=== PATIENT | male | born 1980 | race Caucasian/White ===

== ENCOUNTER 2019-03-09 23:34 | Emergency (ER) | payer BC ==
[~2019-03-09] VITALS: Ht 175.3 cm; Wt 76.7 kg
[~2019-03-09 23:34] MED LIST: MELO7.5T29 PO; TRAM50TA PO
[2019-03-09] MEDS ORDERED: ASPIRIN CHEWABLE 81 MG TABLET. PO ONE (23:45)
--- NOTE | 2019-03-09 23:46 | PHYS DOC ---
Past Medical History Past Medical History: No Pertinent History Past Surgical History: Other Additional Past Surgical Histo: vasectomy Alcohol Use: None Drug Use: None, Other Adult General Chief Complaint Chief Complaint: CHEST PAIN HPI HPI 38-year-old male with no past medical history, no family history that he is aware of presents to the emergency department with substernal chest pain been ongoing all day. Describes the pain as sharp, constant. He states he just of antacids with no relief. Denies any nausea or vomiting. He does describe some shortness of breath. No radiation of the pain. Nothing makes it worse, nothing makes it better. Patient denies any cough Review of Systems Review of Systems Constitutional: Denies fever or chills [] Eyes: Denies change in visual acuity, redness, or eye pain [] HENT: Denies nasal congestion or sore throat [] Respiratory: + SOB Cardiovascular: No additional information not addressed in HPI [] GI: Denies abdominal pain, nausea, vomiting, bloody stools or diarrhea [] Musculoskeletal: Denies back pain or joint pain [] Integument: Denies rash or skin lesions [] Neurologic: Denies headache, focal weakness or sensory changes [] All other systems were reviewed and found to be within normal limits, except as documented in this note. Current Medications Current Medications Current Medications Medications (Trade) Dose Ordered Sig/[facility] Start Time Stop Time Status Last Admin Dose Admin Aspirin (Children'S Aspirin) 324 mg 1X ONCE 03/09/19 23:45 03/09/19 23:46 DC 03/09/19 23:57 324 MG Ketorolac Tromethamine (Toradol 30mg Vial) 30 mg 1X ONCE 03/10/19 00:30 03/10/19 00:31 DC 03/10/19 00:39 30 MG Magnesium Sulfate 50 ml @ 25 mls/hr 1X ONCE 03/10/19 00:30 03/10/19 02:29 03/10/19 00:39 25 MLS/HR Nitroglycerin (Nitrostat) 0.4 mg PRN Q5MIN PRN 03/09/19 23:45 03/10/19 23:44 03/10/19 00:13 0.4 MG Allergies Allergies Allergies Coded Allergies Type Severity Reaction Last Updated Verified No Known Drug Allergies 04/28/13 No Physical Exam Physical Exam Constitutional: Well developed, well nourished, no acute distress, non-toxic appearance. [] HENT: Normocephalic, atraumatic, bilateral external ears normal, oropharynx moist, no oral exudates, nose normal. [] Eyes: PERRLA, EOMI, conjunctiva normal, no discharge. [] Cardiovascular:Heart rate regular rhythm, no murmur [] Lungs & Thorax: Bilateral breath sounds clear to auscultation [] Abdomen: Bowel sounds normal, soft, no tenderness, no masses, no pulsatile masses. [] Skin: Warm, dry, no erythema, no rash. [] Back: No tenderness, no CVA tenderness. [] Extremities: No tenderness, no edema. [] Neurologic: Alert and oriented X 3, no focal deficits noted. [] Psychologic: Affect normal, judgement normal, mood normal. [] Current Patient Data Vital Signs Vital Signs Date Time Temp Pulse Resp B/P (MAP) Pulse Ox O2 Delivery O2 Flow Rate FiO2 03/10/19 01:50 74 20 108/66 (80) 98 Room Air 03/09/19 23:35 97.4 97.4 Lab Values Laboratory Tests Test 03/09/19 23:44 White Blood Count 8.0 x10^3/uL (4.0-11.0) Red Blood Count 4.57 x10^6/uL (4.30-5.70) Hemoglobin 14.6 g/dL (13.0-17.5) Hematocrit 42.7 % (39.0-53.0) Mean Corpuscular Volume 93 fL (79-100) Mean Corpuscular Hemoglobin 32 pg (25-35) Mean Corpuscular Hemoglobin Concent 34 g/dL (31-37) Red Cell Distribution Width 13.0 % (11.5-14.5) Platelet Count 215 x10^3/uL (140-400) Neutrophils (%) (Auto) 57 % (31-73) Lymphocytes (%) (Auto) 32 % (24-48) Monocytes (%) (Auto) 8 % (0-9) Eosinophils (%) (Auto) 2 % (0-3) Basophils (%) (Auto) 1 % (0-3) Neutrophils # (Auto) 4.6 x10^3/uL (1.8-7.7) Lymphocytes # (Auto) 2.5 x10^3/uL (1.0-4.8) Monocytes # (Auto) 0.7 x10^3/uL (0.0-1.1) Eosinophils # (Auto) 0.2 x10^3/uL (0.0-0.7) Basophils # (Auto) 0.1 x10^3/uL (0.0-0.2) Sodium Level 142 mmol/L (136-145) Potassium Level 4.3 mmol/L (3.5-5.1) Chloride Level 103 mmol/L (98-107) Carbon Dioxide Level 29 mmol/L (21-32) Anion Gap 10 (6-14) Blood Urea Nitrogen 11 mg/dL (8-26) Creatinine 0.9 mg/dL (0.7-1.3) Estimated GFR (Cockcroft-Gault) 93.5 BUN/Creatinine Ratio 12 (6-20) Glucose Level 161 mg/dL (70-99) H Calcium Level 9.5 mg/dL (8.5-10.1) Magnesium Level 1.6 mg/dL (1.8-2.4) L Total Bilirubin 0.2 mg/dL (0.2-1.0) Aspartate Amino Transferase (AST) 61 U/L (15-37) H Alanine Aminotransferase (ALT) 105 U/L (16-63) H Alkaline Phosphatase 162 U/L (46-116) H Troponin I Quantitative < 0.017 ng/mL (0.000-0.055) MF-Bjh-V-Type Natriuretic Peptide 42 pg/mL (0-124) Total Protein 7.2 g/dL (6.4-8.2) Albumin 3.8 g/dL (3.4-5.0) Albumin/Globulin Ratio 1.1 (1.0-1.7) Laboratory Tests 03/09/19 23:44 Laboratory Tests 03/09/19 23:44 EKG EKG EKG reviewed normal sinus rhythm, normal axis, no evidence of ST elevation NM, heart rate 68 normal EKG interpretation time 28/06/39[] Radiology/Procedures Radiology/Procedures [facility] [address] [place] [address] IMAGING REPORT Signed PATIENT: CORY TURNERCAMERONCCOUNT: [id number] : 1980 LOCATION: ER AGE: 38 SEX: M EXAM STATUS: REG ER ORD. PHYSICIAN: TARIQ GLYNN MD REASON: elevated lfts, epigastric pain PROCEDURE: ABDOMEN LTD CLINICAL HISTORY: Elevated LFTs, epigastric pain COMPARISON: None available. TECHNIQUE: Limited ultrasound examination of the right upper quadrant of the abdomen was performed FINDINGS: Visualized pancreatic head and body are unremarkable. Tail is obscured by overlying bowel gas. Liver: The liver measures 16 cm in length in the right mid clavicular line. Increased hepatic echogenicity relative to the right kidney consistent with hepatic steatosis. There is no focal abnormality of the liver. Portal and hepatic venous flow is confirmed with normal waveforms. Gallbladder/Biliary: Gallstones are seen within the gallbladder. Echogenic material dependently within the gallbladder likely sludge.. There is no wall thickening or pericholecystic fluid. There is no pain with direct transducer pressure over the gallbladder.The common bile duct measures 0.4 cm. The right kidney measures 9.8 cm in bipolar length. No focal renal lesion. Normal renal cortical echotexture. No hydronephrosis. There is no free fluid in the subhepatic space. IMPRESSION: Mild increased echogenicity of the liver may be seen with fatty liver. Lithiasis without sonographic evidence for acute cholecystitis. Electronically signed by: Jeremias Crowley MD (03/10/2019 1:52 AM) [facility] DICTATED and SIGNED BY: JEREMIAS CROWLEY MD DATE: 03/10/19 0152 [] Course & Med Decision Making Course & Med Decision Making Pertinent Labs and Imaging studies reviewed. (See chart for details) []38-year-old male with no past medical history, no family history that he is aware of presents to the emergency department with substernal chest pain been ongoing all day. Describes the pain as sharp, constant. He states he just of antacids with no relief. Denies any nausea or vomiting. He does describe some shortness of breath. No radiation of the pain. Nothing makes it worse, nothing makes it better. Patient denies any cough Trop negative LFTs elevated US reviewed - no acute cholecystitis Planned for dc home - pain improved after Toradol Return precautions provided Recommend dc home follow up with PCP as needed Dragon Disclaimer Dragon Disclaimer This electronic medical record was generated, in whole or in part, using a voice recognition dictation system. The HEART Score for CP Pts HEART Score for Chest Pain: HEART Score for Chest Pain Response (Comments) Value History Slighlty/Non-Suspicious 0 ECG Normal 0 Age < 45 0 Risk Factors 1 or 2 Risk Factors 1 Troponin < Normal Limit 0 Total 1 Risk Factors: Risk Factors: DM, Current or recent (<one month) smoker, HTN, HLP, family history of CAD, obesity. Risk Scores: Score 0 - 3: 2.5% MACE over next 6 weeks - Discharge Home Score 4 - 6: 20.3% MACE over next 6 weeks - Admit for Clinical Observation Score 7 - 10: 72.7% MACE over next 6 weeks - Early Invasive Strategies Departure Departure Impression: Primary Impression: Epigastric abdominal pain Disposition: 01 HOME, SELF-CARE Condition: IMPROVED Referrals: NO PCP (PCP) Patient Instructions: Abdominal Pain, Chest Pain (Nonspecific), [id number] Additional Instructions: Recommend follow up with PCP 3 - 5 days Return to the ER with worsening symptoms, intractable pain, fever, altered mental status Tylenol/Motrin as needed for pain US reviewed without acute cholecystitis TARIQ GLYNN MD Mar 09, 2019 23:46
[2019-03-09 23:52] LABS: BASO # 0.1 x10^3/uL (0.0-0.2); BASO % 1 % (0-3); EOS # 0.2 x10^3/uL (0.0-0.7); EOS % 2 % (0-3); HEMATOCRIT 42.7 % (39.0-53.0); HEMOGLOBIN 14.6 g/dL (13.0-17.5); LYMPH # 2.5 x10^3/uL (1.0-4.8); LYMPH % 32 % (24-48); MEAN CORPUSCULAR HEMOGLOBIN 32 pg (25-35); MEAN CORPUSCULAR HGB CONC 34 g/dL (31-37); MEAN CORPUSCULAR VOLUME 93 fL (79-100); MONO # 0.7 x10^3/uL (0.0-1.1); MONO % 8 % (0-9); NEUT # 4.6 x10^3/uL (1.8-7.7); NEUT % 57 % (31-73); PLATELET COUNT 215 x10^3/uL (140-400); RED BLOOD COUNT 4.57 x10^6/uL (4.30-5.70)
[2019-03-09] MEDS: NITROGLYCERIN SUBLINGUAL 0.4 MG BOTTLE OF 25. SL PRN (23:58)
[2019-03-10 00:05] LABS: CALCIUM 9.5 mg/dL (8.5-10.1); CREATININE 0.9 mg/dL (0.7-1.3); GFR 93.5; POTASSIUM 4.3 mmol/L (3.5-5.1)
--- NOTE | 2019-03-10 00:07 | RAD ---
EXAM: AP View of the chest DATE: 03/09/2019 11:35 PM INDICATION: Chest pain COMPARISON: 03/26/2018 FINDINGS: The heart is not enlarged. Mediastinal and hilar contours are normal. No focal parenchymal airspace opacity. No pleural effusion or pneumothorax. IMPRESSION: 1. No radiographic evidence for acute cardiopulmonary process. Electronically signed by: Jeremias Crowley MD (03/10/2019 12:04 AM) [facility]
[2019-03-10 00:11] LABS: ALBUMIN 3.8 g/dL (3.4-5.0); ALBUMIN/GLOBULIN RATIO 1.1 (1.0-1.7); MAGNESIUM 1.6 mg/dL (1.8-2.4); TOTAL BILIRUBIN 0.2 mg/dL (0.2-1.0); TOTAL PROTEIN 7.2 g/dL (6.4-8.2)
[2019-03-10] MEDS: NITROGLYCERIN SUBLINGUAL 0.4 MG BOTTLE OF 25. SL PRN (00:13)
[2019-03-10] MEDS ORDERED: MAGNESIUM SULFATE 2GM 50 ML IV ONE (00:30)
[2019-03-10] MEDS ORDERED: KETOROLAC 30 MG/ML VIAL. IVP ONE (00:30)
--- NOTE | 2019-03-10 01:55 | RAD ---
CLINICAL HISTORY: Elevated LFTs, epigastric pain COMPARISON: None available. TECHNIQUE: Limited ultrasound examination of the right upper quadrant of the abdomen was performed FINDINGS: Visualized pancreatic head and body are unremarkable. Tail is obscured by overlying bowel gas. Liver: The liver measures 16 cm in length in the right mid clavicular line. Increased hepatic echogenicity relative to the right kidney consistent with hepatic steatosis. There is no focal abnormality of the liver. Portal and hepatic venous flow is confirmed with normal waveforms. Gallbladder/Biliary: Gallstones are seen within the gallbladder. Echogenic material dependently within the gallbladder likely sludge.. There is no wall thickening or pericholecystic fluid. There is no pain with direct transducer pressure over the gallbladder.The common bile duct measures 0.4 cm. The right kidney measures 9.8 cm in bipolar length. No focal renal lesion. Normal renal cortical echotexture. No hydronephrosis. There is no free fluid in the subhepatic space. IMPRESSION: Mild increased echogenicity of the liver may be seen with fatty liver. Lithiasis without sonographic evidence for acute cholecystitis. Electronically signed by: Jeremias Crowley MD (03/10/2019 1:52 AM) [facility]
[2019-03-10 02:17] VITALS: BP 121/62
--- NOTE | 2019-03-11 07:03 | EKG ---
[facility] [address] [place] [address] Test Date: 2019-03-09 Test Time: 23:40:21 Pat Name: DEON TURNER Department: Room: Gender: M Inspector Tubes: : 1980 Requested By: TARIQ GLYNN Order Number: [id number] Reading MD: Tejas Gaspar MD Measurements Intervals Roxana Rate: 68 P: 20 MA: 134 QRS: 50 QRSD: 84 T: 31 QT: 396 QTc: 425 Interpretive Statements SINUS RHYTHM Electronically Signed On 03-12-2019 11:09:40 [employer] by Tejas Gaspar MD
== END 2019-03-10 02:20 | disposition home or self-care (01) ==
LOC: ER 23:34
DX: R10.13 Epigastric pain (principal); Z90.89 Acquired absence of other organs; Z79.82 Long term (current) use of aspirin
CPT/HCPCS: 36415; 71045; 76705; 80053; 83735; 83880; 84484; 85025; 93005; 96365; 96366; 96375; 99285; J1885; J3475

== ENCOUNTER 2019-11-19 05:52 | Emergency (ER) | payer BC ==
[~2019-11-19] VITALS: Ht 172.7 cm; Wt 73.4 kg
[2019-11-19] MEDS ORDERED: ONDANSETRON PF 4 MG/2 ML VIAL. IVP ONE (06:15)
[2019-11-19] MEDS ORDERED: IV NORMAL SALINE 1000ML BAG 1,000 ML IV ONE (06:15)
[2019-11-19 06:24] LABS: BASO # 0.1 x10^3/uL (0.0-0.2); BASO % 1 % (0-3); EOS # 0.1 x10^3/uL (0.0-0.7); EOS % 2 % (0-3); HEMOGLOBIN 14.5 g/dL (13.0-17.5); LYMPH # 3.1 x10^3/uL (1.0-4.8); LYMPH % 34 % (24-48); MEAN CORPUSCULAR HEMOGLOBIN 32 pg (25-35); MEAN CORPUSCULAR HGB CONC 35 g/dL (31-37); MEAN CORPUSCULAR VOLUME 92 fL (79-100); MONO # 0.7 x10^3/uL (0.0-1.1); MONO % 7 % (0-9); NEUT % 56 % (31-73); PLATELET COUNT 196 x10^3/uL (140-400); RED BLOOD COUNT 4.54 x10^6/uL (4.30-5.70); RED CELL DISTRIBUTION WIDTH 12.8 % (11.5-14.5)
--- NOTE | 2019-11-19 06:28 | PHYS DOC ---
Past Medical History Past Medical History: GERD Past Surgical History: No Surgical History, Other Additional Past Surgical Histo: vasectomy Smoking Status: Current Every Day Smoker Alcohol Use: None Drug Use: None General Adult EDM: Chief Complaint: ABDOMINAL PAIN HPI: HPI: Patient is a 39 year old male who presented to ER today for evaluation of epigastric abdominal pain that radiated to his right upper quadrant and his back since 5 AM yesterday. Patient denies any nausea vomiting, no cough, no fever, no chest pain. Patient has history of chronic back pain, so he has been taking ibuprofen every morning. Patient had not taken any ibuprofen for the last 2 days because he ran out. Patient denies drinking alcohol. Patient denies any history of heart problem, no history of hypertension, no history of diabetic. Patient denies any recent exposure to anybody who tested positive for COVID-19. Patient said eating makes the pain worse. Review of Systems: Review of Systems: Constitutional: Denies fever or chills. [] Eyes: Denies change in visual acuity. [] HENT: Denies nasal congestion or sore throat. [] Respiratory: Denies cough or shortness of breath. [] Cardiovascular: Denies chest pain or edema. [] GI: Positive for abdominal pain, no nausea vomiting, no diarrhea : Denies dysuria. [] Musculoskeletal: Denies back pain or joint pain. [] Integument: Denies rash. [] Neurologic: Denies headache, focal weakness or sensory changes. [] Endocrine: Denies polyuria or polydipsia. [] Lymphatic: Denies swollen glands. [] Psychiatric: Denies depression or anxiety. [] Heart Score: Risk Factors: Risk Factors: DM, Current or recent (<one month) smoker, HTN, HLP, family history of CAD, obesity. Risk Scores: Score 0 - 3: 2.5% MACE over next 6 weeks - Discharge Home Score 4 - 6: 20.3% MACE over next 6 weeks - Admit for Clinical Observation Score 7 - 10: 72.7% MACE over next 6 weeks - Early Invasive Strategies Current Medications: Current Medications Medications (Trade) Dose Ordered Sig/Hailee Start Time Stop Time Status Last Admin Dose Admin Ondansetron HCl (Zofran) 4 mg 1X ONCE 11/19/19 06:15 11/19/19 06:16 DC Sodium Chloride 1,000 ml @ 1,000 mls/hr 1X ONCE 11/19/19 06:15 11/19/19 07:14 Allergies: Allergies: Allergies Coded Allergies Type Severity Reaction Last Updated Verified No Known Drug Allergies 04/28/13 No Physical Exam: PE: Constitutional: Well developed, well nourished, no acute distress, non-toxic appearance. [] HENT: Normocephalic, atraumatic, bilateral external ears normal, oropharynx moist, no oral exudates, nose normal. [] Eyes: PERRLA, EOMI, conjunctiva normal, no discharge. [] Neck: Normal range of motion, no tenderness, supple, no stridor. [] Cardiovascular:Heart rate regular rhythm, no murmur [] Lungs & Thorax: Bilateral breath sounds clear to auscultation [] Abdomen: Bowel sounds normal, soft, There is tenderness to palpation in epigastric area and RUQ AREA, no rebound, no guarding,, no masses, no pulsatile masses. [] Skin: Warm, dry, no erythema, no rash. [] Back: No tenderness, no CVA tenderness. [] Extremities: No tenderness, no cyanosis, no clubbing, ROM intact, no edema. [] Neurologic: Alert and oriented X 3, normal motor function, normal sensory function, no focal deficits noted. [] Psychologic: Affect normal, judgement normal, mood normal. [] Current Patient Data: Labs: Laboratory Tests Test 11/19/19 06:16 11/19/19 07:41 White Blood Count 9.0 x10^3/uL Red Blood Count 4.54 x10^6/uL Hemoglobin 14.5 g/dL Hematocrit 42.0 % Mean Corpuscular Volume 92 fL Mean Corpuscular Hemoglobin 32 pg Mean Corpuscular Hemoglobin Concent 35 g/dL Red Cell Distribution Width 12.8 % Platelet Count 196 x10^3/uL Neutrophils (%) (Auto) 56 % Lymphocytes (%) (Auto) 34 % Monocytes (%) (Auto) 7 % Eosinophils (%) (Auto) 2 % Basophils (%) (Auto) 1 % Neutrophils # (Auto) 5.0 x10^3/uL Lymphocytes # (Auto) 3.1 x10^3/uL Monocytes # (Auto) 0.7 x10^3/uL Eosinophils # (Auto) 0.1 x10^3/uL Basophils # (Auto) 0.1 x10^3/uL Sodium Level 143 mmol/L Potassium Level 4.0 mmol/L Chloride Level 106 mmol/L Carbon Dioxide Level 29 mmol/L Anion Gap 8 Blood Urea Nitrogen 12 mg/dL Creatinine 0.8 mg/dL Estimated GFR (Cockcroft-Gault) 106.5 BUN/Creatinine Ratio 15 Glucose Level 110 mg/dL Calcium Level 9.0 mg/dL Total Bilirubin 0.2 mg/dL Aspartate Amino Transf (AST/SGOT) 16 U/L Alanine Aminotransferase (ALT/SGPT) 31 U/L Alkaline Phosphatase 129 U/L Total Protein 6.6 g/dL Albumin 3.6 g/dL Albumin/Globulin Ratio 1.2 Lipase 190 U/L Urine Collection Type Void Urine Color Yellow Urine Clarity Clear Urine pH 5.5 Urine Specific [place] <=1.005 Urine Protein Negative mg/dL Urine Glucose (UA) Negative mg/dL Urine Ketones (Stick) Negative mg/dL Urine Blood Negative Urine Nitrite Negative Urine Bilirubin Negative Urine Urobilinogen Dipstick 0.2 mg/dL Urine Leukocyte Esterase Negative Urine RBC 0 /HPF Urine WBC 0 /HPF Urine Bacteria 0 /HPF Current Medications Medications (Trade) Dose Ordered Sig/Hailee Route PRN Reason Start Time Stop Time Status Last Admin Dose Admin Ondansetron HCl (Zofran) 4 mg 1X ONCE IVP 11/19/19 06:15 11/19/19 06:16 DC 11/19/19 06:40 Sodium Chloride 1,000 ml @ 1,000 mls/hr 1X ONCE IV 11/19/19 06:15 11/19/19 07:14 DC 11/19/19 06:39 Multi-Ingredient Mouthwash/Gargle (Gi Cocktail) 20 ml 1X ONCE SWSW 11/19/19 06:30 11/19/19 06:31 DC 11/19/19 06:39 Famotidine (Pepcid) 20 mg 1X ONCE PO 11/19/19 06:30 11/19/19 06:31 DC 11/19/19 06:39 Iohexol (Omnipaque 300 Mg/ml) 75 ml 1X ONCE IV 11/19/19 07:30 11/19/19 07:31 DC 11/19/19 07:41 Morphine Sulfate (Morphine Sulfate) 4 mg 1X ONCE IV 11/19/19 08:15 11/19/19 08:16 DC Ketorolac Tromethamine (Toradol 30mg Vial) 30 mg 1X ONCE IVP 11/19/19 09:00 11/19/19 09:01 DC 11/19/19 08:50 Vital Signs: Vital Signs Date Time Temp Pulse Resp B/P (MAP) Pulse Ox O2 Delivery O2 Flow Rate FiO2 11/19/19 06:06 98.9 64 16 132/81 (98) 100 Room Air 98.9 EKG: EKG: [] Radiology/Procedures: Radiology/Procedures: [][facility] [address] [place] [address] IMAGING REPORT Signed PATIENT: AMERICA TURNEROUNT: [id number] : 1980 LOCATION: ER AGE: 39 SEX: M EXAM STATUS: REG ER ORD. PHYSICIAN: EMORY BURNS DO REASON: Abdominal pain since yesterday PROCEDURE: CT ABD PELV W/ IV CONTRST ONLY CT abdomen and pelvis with IV contrast HISTORY: Abdomen pain since last night TECHNIQUE: Computed tomographic imaging of the abdomen and pelvis was performed following the uneventful intravenous administration of 75 cc Omnipaque 300 iodinated nonionic contrast material. COMPARISON: None PQRS Compliance Statement: One or more of the following individualized dose reduction techniques were utilized for this examination: 1. Automated exposure control 2. Adjustment of the mA and/or kV according to patient size 3. Use of iterative reconstruction technique FINDINGS: Lung bases are clear. Liver unremarkable Gallstones. 1 stone appears in the gallbladder neck or possibly the cystic duct. No pericholecystic fluid is apparent or gallbladder wall thickening. Pancreas unremarkable Adrenal glands unremarkable Spleen negative Kidneys negative Mild nonpathologic inguinal lymph nodes. And mild portacaval and mesenteric as well as central retroperitoneal lymph nodes are not pathologic in size. Seminal vesicles and prostate unremarkable Bladder unremarkable Prominence of the colon bowel wall may reflect lack of distention. There is moderate stool retention. Normal-appearing appendix is noted. Mild lumbar intervertebral disc disease without significant central or foraminal stenosis. IMPRESSION: Gallstones included what appears to be one gallstone in the gallbladder neck/early cystic duct without CT suggestion of acute cholecystitis. Ultrasound for further characterization if clinically warranted. Or Pipida study. Diffuse colon wall thickening may reflect lack of distention. There is moderate stool retention. Electronically signed by: Hanna Beckham MD (11/19/2019 7:57 AM) [id number] DICTATED and SIGNED BY: HANNA BECKHAM MD DATE: 11/19/19 0757 [facility] [address] [place] [address] IMAGING REPORT Signed PATIENT: AMERICA TURNEROUNT: [id number] : 1980 LOCATION: ER AGE: 39 SEX: M EXAM STATUS: REG ER ORD. PHYSICIAN: EMORY BURNS DO REASON: RUQ ABDOMINAL PAIN PROCEDURE: ABDOMEN LTD ABDOMEN LTD History: Reason: RUQ ABDOMINAL PAIN / Spl. Instructions: / History: Comparison: CT November 19, 2019. Technique: Transabdominal ultrasound images are obtained of the right upper quadrant. Findings: Visualized pancreas is unremarkable. Liver is normal in echogenicity. Right hepatic lobe measures 16.5 cm. Portal flow is hepatopedal. Cholelithiasis with stone in the gallbladder neck. No gallbladder wall thickening. Phrygian cap noted. No pericholecystic fluid. Common bile duct measures 3 mm in diameter. The right kidney measures 10.6 x 4.7 x 4.2 cm. No hydronephrosis. Visualized portions of the aorta and IVC have normal caliber. IMPRESSION: 1. Cholelithiasis. Electronically signed by: Aston Hardy DO (11/19/2019 9:38 AM) [id number] DICTATED and SIGNED BY: ASTON HARDY DO DATE: 11/19/19 0938 Course & Med Decision Making: Course & Med Decision Making Pertinent Labs and Imaging studies reviewed. (See chart for details) Patient is a 39-year-old male who was evaluated in ER due to right upper quadrant abdominal pain, work-up includes CT scan and ultrasound show cholelithiasis, patient is pain-free at this time, will discharge home, patient will need follow-up with a general surgeon for outpatient follow-up. Dragon Disclaimer: Dragon Disclaimer: This electronic medical record was generated, in whole or in part, using a voice recognition dictation system. Departure Departure Impression: Primary Impression: Biliary colic Disposition: HOME, SELF-CARE Referrals: NO PCP (PCP) THEODORE UREÑA MD please call this Surgeon below for outpatient follow up next week. Patient Instructions: Biliary Colic Additional Instructions: Thank you for visiting our Emergency Department. We appreciate you trusting us with your care. If any additional problems come up don't hesitate to return to visit us. Please follow up with your primary care provider so they can plan additional care if needed and know about the problem that you had. If symptoms worsen come back to the Emergency Department. Any concerning symptoms that start such as chest pain, shortness of air, weakness or numbness on one side of the body, running high fevers or any other concerning symptoms return to the ER. Scripts Tramadol Hcl (TRAMADOL HCL) 50 Mg Tablet 50 MG PO QID PRN for PAIN, #20 TAB 0 Refills Prov: EMORY BURNS DO 11/19/19 Justicifation of Admission Dx: Justifications for Admission: Justification of Admission Dx: N/A EMORY BURNS DO Nov 19, 2019 06:28
[2019-11-19] MEDS ORDERED: FAMOTIDINE 20 MG TABLET. PO ONE (06:30)
[2019-11-19] MEDS ORDERED: LIDO:MAALOX 1:1 20 ML SINGLE DOSE. SWSW ONE (06:30)
[2019-11-19 06:32] LABS: CREATININE 0.8 mg/dL (0.7-1.3); GFR 106.5
[2019-11-19 06:40] LABS: ALBUMIN 3.6 g/dL (3.4-5.0); ALBUMIN/GLOBULIN RATIO 1.2 (1.0-1.7); TOTAL BILIRUBIN 0.2 mg/dL (0.2-1.0); TOTAL PROTEIN 6.6 g/dL (6.4-8.2)
[2019-11-19] MEDS ORDERED: IOHEXOL 300 MG/ML 100ML VIAL. IV ONE (07:30)
[2019-11-19 07:49] LABS: BILIRUBIN,URINE NEGATIVE (NEG); CLARITY,URINE CLEAR; COLOR,URINE YELLOW; NITRITE,URINE NEGATIVE (NEG); PH,URINE 5.5 (<5.0-8.0); PROTEIN,URINE NEGATIVE (NEG-TRACE); UROBILINOGEN,URINE 0.2 mg/dL (0.2 mg/dL)
[2019-11-19 07:56] LABS: BACTERIA,URINE 0 /HPF (0-FEW); RBC,URINE 0 /HPF (0-2); WBC,URINE 0 /HPF (0-4)
--- NOTE | 2019-11-19 08:00 | RAD ---
CT abdomen and pelvis with IV contrast HISTORY: Abdomen pain since last night TECHNIQUE: Computed tomographic imaging of the abdomen and pelvis was performed following the uneventful intravenous administration of 75 cc Omnipaque 300 iodinated nonionic contrast material. COMPARISON: None PQRS Compliance Statement: One or more of the following individualized dose reduction techniques were utilized for this examination: 1. Automated exposure control 2. Adjustment of the mA and/or kV according to patient size 3. Use of iterative reconstruction technique FINDINGS: Lung bases are clear. Liver unremarkable Gallstones. 1 stone appears in the gallbladder neck or possibly the cystic duct. No pericholecystic fluid is apparent or gallbladder wall thickening. Pancreas unremarkable Adrenal glands unremarkable Spleen negative Kidneys negative Mild nonpathologic inguinal lymph nodes. And mild portacaval and mesenteric as well as central retroperitoneal lymph nodes are not pathologic in size. Seminal vesicles and prostate unremarkable Bladder unremarkable Prominence of the colon bowel wall may reflect lack of distention. There is moderate stool retention. Normal-appearing appendix is noted. Mild lumbar intervertebral disc disease without significant central or foraminal stenosis. IMPRESSION: Gallstones included what appears to be one gallstone in the gallbladder neck/early cystic duct without CT suggestion of acute cholecystitis. Ultrasound for further characterization if clinically warranted. Or Pipida study. Diffuse colon wall thickening may reflect lack of distention. There is moderate stool retention. Electronically signed by: Wayne Giordano MD (11/19/2019 7:57 AM) [id number]
[2019-11-19] MEDS ORDERED: MORPHINE SULFATE 4 MG/ML VIAL. IV ONE (08:15)
[2019-11-19] MEDS ORDERED: KETOROLAC 30 MG/ML VIAL. IVP ONE (09:00)
[2019-11-19 09:13] VITALS: BP 128/65
--- NOTE | 2019-11-19 09:41 | RAD ---
ABDOMEN LTD History: Reason: RUQ ABDOMINAL PAIN / Spl. Instructions: / History: Comparison: CT November 19, 2019. Technique: Transabdominal ultrasound images are obtained of the right upper quadrant. Findings: Visualized pancreas is unremarkable. Liver is normal in echogenicity. Right hepatic lobe measures 16.5 cm. Portal flow is hepatopedal. Cholelithiasis with stone in the gallbladder neck. No gallbladder wall thickening. Phrygian cap noted. No pericholecystic fluid. Common bile duct measures 3 mm in diameter. The right kidney measures 10.6 x 4.7 x 4.2 cm. No hydronephrosis. Visualized portions of the aorta and IVC have normal caliber. IMPRESSION: 1. Cholelithiasis. Electronically signed by: Aston Hardy DO (11/19/2019 9:38 AM) [id number]
[2019-11-19] MEDS ORDERED: TRAM50TA PO (10:01)
== END 2019-11-19 10:10 | disposition home or self-care (01) ==
LOC: ER 05:52
DX: K80.70 Calculus of gallbladder and bile duct without cholecystitis without obstruction (principal); G89.29 Other chronic pain; K21.9 Gastro-esophageal reflux disease without esophagitis; F17.200 Nicotine dependence, unspecified, uncomplicated
CPT/HCPCS: 36415; 74177; 76705; 80053; 81001; 83690; 85025; 96361; 96374; 96375; 99285; J1885; J2405; J7030; Q9967

== ENCOUNTER → 2019-12-10 | Outpatient (CLI) | payer BC ==
[2019-11-19 09:13] VITALS: BP 128/65
[~2019-12-10] MED LIST changes: +OXYC1TAB15 PO
== END | disposition home or self-care (01) ==
LOC: LAB 12:55
PROVIDERS: ATTEND Surgery
DX: Z01.812 Encounter for preprocedural laboratory examination (principal); Z20.828 Contact with and (suspected) exposure to other viral communicable diseases; K81.1 Chronic cholecystitis
CPT/HCPCS: U0003-CS

== ENCOUNTER 2019-12-13 08:26 | Day surgery (SDC) | payer BC ==
[~2019-12-13] VITALS: Ht 172.7 cm; Wt 75.0 kg
[~2019-12-13 08:26] MED LIST changes: +ACETAMINOPHEN 500 MG TABLET PO PRN; +DEXAMETHASONE SOD PHOS 4 MG/ML VIAL ONE; +GLYCOPYRROLATE 1 MG/5 ML VIAL. ONE; +HYDROmorphone 2 MG/ML VIAL IV PRN; +IV RINGERS,LACTATED 1000ML 1,000 ML IV SCH; +LIDOCAINE 2% PF 5 ML VIAL. ONE; +MIDAZOLAM HCL/PF 2 MG/2 ML VIAL. ONE; +MORPHINE SULFATE 2 MG/ML VIAL. IV PRN; +NEOSTIGMINE METHYLSULFATE 5 MG/5 ML SYRINGE. ONE; +ONDANSETRON PF 4 MG/2 ML VIAL. IV PRN; +ONDANSETRON PF 4 MG/2 ML VIAL. ONE; -OXYC1TAB15 PO; +PROCHLORPERAZINE 10 MG/2 ML VIAL. IV PRN; +PROPOFOL 10 MG/ML (20ML) VIAL. IV ONE; +ROCURONIUM 50 MG/5 ML VIAL. ONE; +ceFAZolin SODIUM IV Push 1 GM VIAL. IVP PRN; +fentaNYL PF VIAL 100 MCG/2 ML VIAL IV PRN; +fentaNYL PF VIAL 250 MCG/5 ML VIAL ONE
--- NOTE | 2019-12-13 09:47 | NUR ---
PT HERE FOR ANTOINE WITH DR UREÑA. PT STATED HE DRANK "1 CUP" OF WATER AT 0700 BEFORE COMING IN TO THE HOSPITAL. DR ROWLAND NOTIFIED AN PT CLEARED TO RESUME WITH SURGERY AT 1030.
[2019-12-13] MEDS ORDERED: SURGICEL HEMOSTAT 4X8 EACH. ONE (10:24)
[2019-12-13] MEDS ORDERED: BUPIVACAINE-EPI 0.5%-1:200000 MPF 30 ML VIAL. ONE (10:24)
[2019-12-13] MEDS ORDERED: IOHEXOL 300 MG/ML 50 ML VIAL. ONE (10:24)
[2019-12-13] MEDS ORDERED: PHENYLEPHRINE 10 MG/ML VIAL. ONE (11:24)
--- NOTE | 2019-12-13 11:53 | PDOC4 ---
Operative Note Operative Note Date: 2019 at 1151 Preoperative diagnosis: Chronic cholecystitis cholelithiasis Postoperative diagnosis: Same Procedure: Laparoscopic cholecystectomy Surgeon: Aly Specimen: Gallbladder Dictation: Patient is a 39-year-old male who was seen in the office with right upper quadrant abdominal pain postprandial nausea a CT scan showing gallstones. Procedure laparoscopic cholecystectomy was explained to the patient detail was benefits were also discussed including bleeding infection injury to intra- abdominal contents pus necessitating further or open operations alternatives to this procedure also discussed with the patient who seemed to understand and gave both verbal and written consent to have the procedure performed. Patient was taken to the operating room placed in supine position general anesthesia was initiated once patient was sleeping intubated his abdomen was prepped and draped usual sterile fashion using ChloraPrep. An area just below the umbilicus was injected quarter percent Marcaine with epinephrine incision was made 11 blade scalpel and a varies needle was placed within the abdomen creating pneumoperitoneum once this was complete a 10 mm port was placed and a 5 mm camera was placed within the abdomen which was inspected no other abnormalities were noted. 5 mm port was placed in the epigastrium a 5 mm port was placed in the right midabdomen and a 5 mm port was placed in the right lateral abdomen. The dome of the gallbladder is grasped retracted cephalad the infundibulum of the gallbladder is grasped retracted laterally exposing the triangle adherent tissues of the triangle were taken down exposing the cystic duct and cystic artery both were doubly clipped and transected. The gallbladder is taken off the liver with hook electrocautery placed in Endo Catch bag removed and the umbilicus the right upper quadrant is irrigated and suctioned dry hemostasis deemed be appropriate and the pneumoperitoneum was reduced all ports were removed the fascial defect at the umbilicus was closed with a [id number]-muurr 0 Vicryl suture and the skin was reapproximated all port sites for subcuticular Monocryl Mastisol Steri-Strips and island dressings were applied. Patient was awakened and extubated in the operating room taken to recovery in stable condition all sponge instrument needle counts listed as correct. Estimated blood loss 5 mL THEODORE UREÑA MD Dec 13, 2019 11:53
--- NOTE | 2019-12-13 11:56 | DISCH ---
DISCHARGE INSTRUCTIONS Condition on Discharge Condition on Discharge: Stable Activity After Discharge Activity Instructions for Disc: Avoid exertion Other activity instructions: No lifting more than 20 pounds for 2 weeks Diet after Discharge Diet after Discharge: Low Fat Wound Incision Care Other wound/incision instructi: May shower in 24 hours Contacting the after DC Call your doctor for: If your condition worsens Follow-Up Follow up with: Dr. Ureña in 2 weeks THEODORE UREÑA MD Dec 13, 2019 11:55
[2019-12-13] MEDS ORDERED: KETOROLAC 30 MG/ML VIAL. ONE (12:05)
[2019-12-13] MEDS ORDERED: OXYC1TAB15 PO (12:38)
[2019-12-13] MEDS ORDERED: oxyCODONE/APAP 5/325 1 TAB TABLET ONE (12:43)
[2019-12-13] MEDS ORDERED: oxyCODONE/APAP 5/325 1 TAB TABLET PO ONE (12:45)
[2019-12-13 12:50] VITALS: BP 143/83
--- NOTE | 2019-12-20 11:08 | PATHOLOGY ---
[facility] Accession Number: [id number] . 01 Material submitted: . gallbladder - GALLBLADDER . 01 Clinical history: . CHRONIC CHOLECYSTITIS . 02 Diagnosis: Gallbladder, excision: - Chronic cholecystitis; negative for malignancy. - Cholesterolosis. - Lithiasis. (MLK:pit; 12/20/2019) [facility] 12/20/2019 0732 Local . 02 Electronically signed: . Rohini Webster MD, Pathologist NPI- [id number] . 01 Gross description: . The specimen is received in formalin, labeled "Josh Vang, gallbladder". Received is an intact gallbladder measuring 8.6 x 2.6 x 1.5 cm in greatest dimensions displaying a pink-groves, bile-stained serosal surface. Opening the specimen reveals a velvety, bile-stained mucosa with a gallbladder wall thickness of 0.1 cm. Calculi are present displaying a bright yellow and smooth to nodular appearance, and no masses or lesions are noted grossly. Tie Presser sections, to include the proximal margin, are submitted in cassette A1. ([facility]; 12/13/2019) QAC/QAC 12/13/2019 1701 Local . 02 Pathologist provided ICD-10: K80.10, K82.4 . 02 CPT . 267161 Specimen Comment: A courtesy copy of this report has been sent to [phone] Specimen Comment: Report sent to Performed at: 01 [facility] [address], [place] [id number] MD Wilfred Rodney MD Phone: [phone] Performed at: 02 [facility] [address] [place], [place] [id number] MD Pedro Pineda MD Phone: [phone]
== END 2019-12-13 13:20 | disposition home or self-care (01) ==
LOC: SURG 08:26
PROVIDERS: ATTEND Surgery
DX: K80.10 Calculus of gallbladder with chronic cholecystitis without obstruction (principal); K21.9 Gastro-esophageal reflux disease without esophagitis; F17.210 Nicotine dependence, cigarettes, uncomplicated; Z79.899 Other long term (current) drug therapy
CPT/HCPCS: 47562; A7015; J0690; J1100; J1885; J2250; J2370; J2405; J2704; J2710; J3010; J3490; J7030; Q9967